=== PATIENT | male | born 1950 | race Caucasian/White ===

== ENCOUNTER 2017-02-04 20:45 | Inpatient (IN) | payer OTHER ==
--- NOTE | ~2017-02-04 | DS ---
Discharge Summary [facility] [address] [place]. [address] NAME: MAY YOU : 49 STATUS : DIS IN PAT#: [id number] AGE: 66 ADM/REG DATE : 02/04/17 MR#: [id number] REPORT SERV DATE: 02/08/17 DICTATED BY: MARTINEZ REYES DATE: 02/08/17 REPORT STATUS : Draft TRANSCRIBED BY: MODL DATE: 02/08/17 ADMISSION DATE: 02/04/2017 DISCHARGE DATE: 02/08/2017 PRIMARY CARE PHYSICIAN: Edgard Christiansen. CONSULTING PHYSICIAN: Dr. Jaeger for GI, Dr. Tate for [place], Cardiology. FINAL DIAGNOSES: 1. Acute hepatitis B. 2. Paroxysmal atrial fibrillation. 3. Hypertension. 4. History of hypertrophic obstructive cardiomyopathy. 5. Chronic kidney disease, III. 6. Obstructive sleep apnea. 7. Parkinson's. 8. Obesity. 9. Right staghorn calculus. DIAGNOSTIC EXAM: Echocardiogram reveals hypertrophic obstructive cardiomyopathy, normal left ventricular size with hyperdynamic systolic function at 65%, moderate asymmetric septal hypertrophy, dynamic LVOT obstruction, peak aortic gradient at 100, mild diastolic dysfunction, mild left atrial enlargement, aortic valve sclerosis without stenosis, possible bicuspid morphology. Chest x-ray showing mild fullness of the pulmonary vasculature with bibasilar atelectasis, stable mild enlargement of the cardiac silhouette. Gallbladder ultrasound showing calcifications are present in the non-dependent location in the gallbladder within the gallbladder wall. There is no ultrasound evidence of cholecystitis. Right staghorn renal calculus with cortical thinning, obscuration of pancreas by gas. CAT scan of the abdomen and pelvis showing no acute abdominal or pelvic pathology, cholelithiasis. No acute cholecystitis pattern. Large nonobstructing staghorn calculus, right kidney, with extensive diffuse renal cortical thinning, right kidney. Nonobstructing 2 mm calculus, lower pole, left renal collecting system. HOSPITAL COURSE: Please refer to the H and P done by Dr. Tate dated on 02/04/2017. Briefly this is a 66-year-old male, who comes in with jaundice. The patient started having icteric sclerae about four days prior to admission, went to his PCP and was found to have elevated bilirubin. He has been getting weaker and weaker, decreased appetite, and was then seen in the emergency room. The patient was admitted. Further workup revealed that he has an acute hepatitis B. He got Dr. Jaeger involved and he has had more of supportive care only. We have seen his liver enzymes trending downward with no nausea and vomiting, and he expressed his wishes to go home. We got clearance from Dr. Jaeger for him to go home today. Discharge Summary [facility] [id number] [place]. [address] NAME: MAY YOU : 49 STATUS : DIS IN PAT#: [id number] AGE: 66 ADM/REG DATE : 02/04/17 MR#: [id number] REPORT SERV DATE: 02/08/17 DICTATED BY: MARTINEZ REYES DATE: 02/08/17 REPORT STATUS : Draft TRANSCRIBED BY: VICTORIA DATE: 02/08/17 Meanwhile, he was having some pain. It was not clear whether it is from the abdomen or chest, so we got a troponin, and it was found to be elevated. Further evaluation revealed that he has been having some chronic elevation of his troponin, and we got Cardiology involved. They did not believe that the patient has any acute coronary syndrome, and they said this is a chronic troponin leak. They did an echocardiogram, which showed the above findings. They increased the metoprolol and wanted to restart the Eliquis that we stopped. We initially stopped the Eliquis because the INR was elevated. The patient refused to take the Eliquis, took the higher dose of metoprolol, and felt worse. Cardiology dropped by. They said it is okay to keep the patient on either dose but needs to follow up with Dr. Way, and they did not think that there is any cardiac process going on right now as they believed that the pain is more of abdominal rather than chest. Meanwhile, the patient was found also to have a dirty urine. It is likely due to his high bilirubin. He got a urinalysis, which shows a gram-negative aftab, but I asked him repeatedly, he denies any urinary symptoms at all. I hesitate to treat this patient with antibiotics, and I would defer that later on if he gets some symptoms. The patient expressed his wishes to go home. The son believed that he is better than when he first came in, so we will be discharging him with the above diagnoses. He will follow up with Dr. Rayo Christiansen, which he said he has an appointment already next week. Follow up with Dr. Jaeger in a month. Follow up with Dr. Way in three to four weeks. He will be on the following medications: Aspirin 81 mg a day, Sinemet 1 tablet 3 times a day, multivitamin once a day, metoprolol 12.5 mg twice a day, Mirapex 0.75 mg three times a day. The patient was counseled that if he has more symptoms, any kind of nausea, vomiting, fever, dysuria, hematuria, not to hesitate to come back to the emergency room. This has been explained to the patient in front of the son. They agreed and understood the plan. TIME SPENT: 35 minutes. GIANNA/VICTORIA Martinez Reyes M.D. / [id number]
--- NOTE | ~2017-02-04 | HP ---
History And Physical [address] [place]. [address] NAME: MAY YOU : 49 STATUS : ADM IN [facility]#: [id number] AGE: 66 ADM/REG DATE : 02/04/17 MR#: [id number] REPORT SERV DATE: 02/05/17 DICTATED BY: EMELIA PAYNE DATE: 02/05/17 REPORT STATUS : Draft TRANSCRIBED BY: MODL DATE: 02/05/17 DATE OF ADMISSION: 02/04/2017 CHIEF COMPLAINT: A 66-year-old male presenting with extreme jaundice, new onset. HISTORY OF PRESENT ILLNESS: The patient's history was obtained through careful interview with the patient and son, coupled with review of [facility] and [facility] medical records. The patient about four days prior to admission began to have yellow in his eyes. His son first noticed this and urged him to finally follow up with his primary care physician. He did see his primary care physician on the day prior to admission, and had blood work that confirmed elevated bilirubin with other liver enzyme abnormalities. He has been feeling "weak" for about seven days at times as if his legs will give out under him. He describes abdominal discomfort mostly in his lower quadrants, but then radiating up into his right upper quadrant to the back, a bloated gassy quality 4/10 severity. He has had myalgias, decreased appetite, but no nausea or vomiting. He has had about a five-pound weight loss in the last two weeks. He has chronic lymphedema that seems unchanged from baseline. He admits that his Parkinson's tremor as worsened by illness and anxiety now. He denies any history of IV drug abuse or blood transfusion. REVIEW OF SYSTEMS: Otherwise, a 14-point review of systems was obtained and was negative. PAST MEDICAL HISTORY: 1. Parkinson disease. 2. Hypertrophic obstructive cardiomyopathy. 3. Atrial fibrillation, followed by Dr. Way. 4. Morbid obesity with body mass index greater than 40. 5. Obstructive sleep apnea, on BiPAP. 6. Elevated cholesterol. 7. Hypertension. 8. Dyslipidemia. 9. Chronic kidney disease, stage III, baseline creatinine of 1.2 to 1.3. 10.Nephrolithiasis. 11.Cholelithiasis. 12.Hypothyroidism. 13.Previous gastrointestinal evaluation by Dr. Jaeger. PAST SURGICAL HISTORY: Denies any. History And Physical [address] [place]. [address] NAME: MAY YOU : [birth year] STATUS : ADM IN [facility]#: [id number] AGE: 66 ADM/REG DATE : 02/04/17 MR#: [id number] REPORT SERV DATE: 02/05/17 DICTATED BY: EMELIA PAYNE DATE: 02/05/17 REPORT STATUS : Draft TRANSCRIBED BY: MODL DATE: 02/05/17 ALLERGIES: NO KNOWN DRUG ALLERGIES. SOCIAL HISTORY: The patient is , lives alone. He has one son. 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 He now lives in [place], [place]. No tobacco abuse. No alcohol use. FAMILY HISTORY: Father at 59 years of age of heart disease. Brother at 60 years of age of heart disease. Mother of cancer. Many family members have had gallbladder disease, but no known liver disease in the family. CURRENT MEDICATIONS: Include Eliquis 5 mg p.o. b.i.d., carbidopa/levodopa p.o. three times a day, metoprolol 12.5 mg p.o. b.i.d., multivitamin, and Mirapex 0.75 mg p.o. t.i.d. PHYSICAL EXAMINATION: VITAL SIGNS: Temperature 98.6, pulse 57, blood pressure 146/89, respiratory rate 18, O2 saturation 97% on room air. GENERAL: Pleasant, cooperative, male, obviously jaundiced. HEENT: Pupils equal, round, and reactive to light. No conjunctival pallor. Nares are patent. Oropharynx is clear of obstruction. Moist mucous membranes. NECK: Trachea midline. No thyromegaly. LYMPH: No cervical lymphadenopathy. No supraclavicular lymphadenopathy. RESPIRATORY: Clear to auscultation at bases. No wheezes, no rales, no rhonchi. Normal respiratory effort. CARDIOVASCULAR: Bradycardic, regular rhythm. The patient does have a 3/6 systolic murmur that radiates upward towards the neck. No jugular venous distention. No significant lower extremity edema other than chronic changes. ABDOMEN: Only minimally tender throughout. No specific right upper quadrant abdominal pain on exam. No rebound. No guarding. Nondistended. No hepatosplenomegaly. DERMATOLOGICAL: Jaundice throughout. Warm and dry extremities. No pallor, no cyanosis. PSYCHIATRIC: Normal affect. Good mood. Alert and oriented x3. LABORATORY DATA: White blood count 7.2, hemoglobin 13, hematocrit 39, platelets 170. Sodium 138, potassium 4.1, chloride 104, bicarb 25, BUN 22, creatinine 1.49, glucose 99. Albumin 2.2. AST 682, ALT 227, alkaline phosphatase 131. Total bilirubin 20.2. STUDIES: CT scan of the abdomen shows cholelithiasis and also shows a staghorn calculus in the kidneys, but without any associated complication. ASSESSMENT AND PLAN: 1. Acute cholestatic liver failure with evidence of cholelithiasis, but no clear obstruction on CT scan. We would like to consult Dr. Jaeger, the patient's claims correspondence clerk, but also consulted to Dr. Maged Hinkle, gun perforator loader. Check an ultrasound of liver and gallbladder for now. 2. Hepatitis B. Apparently labs on the day prior to admission did show a positive hepatitis B surface antigen and a positive hepatitis B core IgM antibody. We will consult Dr. Maged Hinkle, gun perforator loader. No clear risk factors were identified for History And Physical [address] [address] NAME: MAY YOU : [birth year] STATUS : ADM IN [facility]#: [id number] AGE: 66 ADM/REG DATE : 02/04/17 MR#: [id number] REPORT SERV DATE: 02/05/17 DICTATED BY: EMELIA PAYNE DATE: 02/05/17 REPORT STATUS : Draft TRANSCRIBED BY: MODL DATE: 02/05/17 being infected with hepatitis B though. 3. Obstructive sleep apnea, on BiPAP. 4. Chronic kidney disease, stage III. 5. Hypertrophic obstructive cardiomyopathy with murmur. 6. Parkinson disease worsened by illness and stress. 7. Paroxysmal atrial fibrillation, on Eliquis. We will be holding this anticoagulation for procedure possibilities. CHARANL/VICTORIA Emelia Payne M.D. / [id number] CC: Chad Mcgregor Jr, MD Richard Sadowitz, M.D. Edgard Lewis M.D.
--- NOTE | ~2017-02-04 | CN ---
Consultation Report [facility] [address] [place]. [address] NAME: MAY YOU : 49 STATUS : ADM IN PAT#: [id number] AGE: 66 ADM/REG DATE : 02/04/17 MR#: [id number] REPORT SERV DATE: 02/06/17 DICTATED BY: LIZETH NICK DATE: 02/06/17 REPORT STATUS : Draft TRANSCRIBED BY: MODL DATE: 02/06/17 CARDIOLOGY CONSULT DATE OF CONSULTATION: REFERRING REASON: Paroxysmal atrial fibrillation and elevated troponin. HISTORY OF PRESENT ILLNESS: This is a pleasant 66-year-old morbidly obese white gentleman with several medical problems, well known to Dr. Way from [facility] who had recent hospitalization in December at [facility] on hospitalist Service. At that time, he was found to have some atypical chest pain and palpitations. He was found to be in atrial fibrillation, but converted back to normal sinus rhythm per note. He has mild nonobstructive CAD by arteriogram in 2014 likely has some hypertrophic obstructive cardiomyopathy with some mildly increased gradient during the pullback from left ventricle per Dr. Cristobal in 2014. This was not confirmed by the echocardiogram. The EF was 65%. In December, he had mild troponin leak up to 1.12. He denied any chest pain but has intermittent abdominal discomfort recently. He noted jaundice for about one week, general weakness, poor appetite, and some weight loss. He lives independently. Of note, the patient walks without any support but has underlying Parkinson disease followed by Dr. Rocha. When he came to emergency room, there were some episodes of wide-complex tachycardia on monitor, but the patient does not have any recollection about any chest pain at that time. It is unclear without any annotation if the patient was moving or not. He has severe tremor. At around 4 a.m. in the morning, he developed what he clearly described to me left upper quadrant abdominal pain. An electrocardiogram was performed which suggested atrial fibrillation with slow ventricular response at 57 beats per minute, but no acute ST-T changes. His troponin remains at 0.13. He is currently normal sinus rhythm with some multiple movements due to the tremor of his upper extremities. Another electrocardiogram now suggested the possibility of atrial flutter on 12-leads, but on monitor he remains in sinus rhythm. He is hemodynamically stable without any chest pain. He is sitting comfortable on a chair. The patient denied any recent chest pain. The decision was to treat him medically per Dr. Way recently. He has been seen by him also in the office on 01/04/2017 and was treated with Eliquis and metoprolol. He denied any recent bleeding, but in the emergency room, he was found to have a markedly elevated liver enzymes including lipase. INR is 2.2 and direct bilirubin 16.2. His antibodies against hepatitis B suggesting acute hepatitis. He is in the process to be seen by a liver specialist. The rest of the review of systems is negative. PAST MEDICAL HISTORY: 1. Morbid obesity. 2. Paroxysmal atrial fibrillation, currently normal sinus rhythm. 3. Anticoagulation with Eliquis, started on 12/2016. 4. Holter monitor in 12/2016 revealed normal sinus rhythm. No evidence of AFib. Consultation Report [facility] [id number] [facility] [place]. [address] NAME: MAY YOU : 48 STATUS : ADM IN [facility]#: [id number] AGE: 66 ADM/REG DATE : 02/04/17 MR#: [id number] REPORT SERV DATE: 02/06/17 DICTATED BY: LIZETH NICK DATE: 02/06/17 REPORT STATUS : Draft TRANSCRIBED BY: VICTORIA DATE: 02/06/17 5. Hypertension. 6. Hyperlipidemia. 7. Morbid obesity. 8. Obstructive sleep apnea, on nocturnal BiPAP. 9. Parkinson disease with significant upper extremity tremors. 10.Possible hypertrophic obstructive cardiomyopathy per an arteriogram in 2014. 11.Preserved systolic function with EF 65% by echocardiogram in 2014. 12.Mild nonobstructive CAD by arteriogram in 2014. 13.Chronic troponin leak at 0.12. 14.Chronic lower extremity lymphedema. ALLERGIES: NO KNOWN DRUG ALLERGIES. SOCIAL HISTORY: The patient is retired. He is . Lives independently. His son is living close by. He is walking without any support. He denies drinking alcohol or using street drugs or smoking. FAMILY HISTORY: Remarkable for his father having OK at age 59. HOME MEDICATIONS: Eliquis 5 mg twice a day, Sinemet 25/100 mg four times a day, metoprolol tartrate 12.5 mg twice a day, multivitamin, and Mirapex 0.7 mg once a day. PHYSICAL EXAMINATION: GENERAL: In no acute distress. VITAL SIGNS: Blood pressure 126/77, heart rate 60 and regular. LUNGS: Decreased breath sounds bibasilarly, but no crackles. There is obvious jaundice present was yellow discoloration of his entire upper torso and upper extremities including the face and the sclera. ABDOMEN: Morbidly obese, distended, with palpation tenderness in the epigastric and left upper quadrant area. EXTREMITIES: Lower extremity 1+ chronic lymphedema up to half of the shins bilaterally with decreased pedal pulses. DATA: ALP 124, AST 745, direct bilirubin 16.2, lipase 551. Creatinine 1.54 and now 1.31 and BUN 20. Hemoglobin 11.8 and hematocrit 35. Troponin 0.13 and 0.12. Brain natriuretic peptide 249. TSH is 3.5. Electrolytes are otherwise within normal limits. Electrocardiogram as above. ASSESSMENT AND PLAN: 1. Acute hepatitis B. 2. Intermittent abdominal pain, likely related to #1. 3. Paroxysmal atrial fibrillation, currently normal sinus rhythm. 4. Chronic mild troponin elevation. 5. Mild nonobstructive coronary artery disease by arteriogram in 2014. 6. Possible hypertrophic cardiomyopathy. Consultation Report [address] [address] NAME: MAY YOU : 48 STATUS : ADM IN [facility]#: [id number] AGE: 66 ADM/REG DATE : 02/04/17 MR#: [id number] REPORT SERV DATE: 02/06/17 DICTATED BY: LIZETH NICK DATE: 02/06/17 REPORT STATUS : Draft TRANSCRIBED BY: VICTORIA DATE: 02/06/17 7. The patient will be seen by liver specialist. 8. Anticoagulation in on hold per Primary Service due to his liver dysfunction. At the present time, there is no clear evidence of atrial fibrillation. Follow monitor here, remains normal sinus rhythm. He also denied any palpitations. We will increase dose of metoprolol, and supplement p.r.n. IV metoprolol if needed. We will start him on aspirin 81 mg once a day. Anticoagulation should be reconsidered when safe from the liver standpoint, and we will do echocardiogram to exclude regional wall motion abnormalities and LVOT gradient. At the present time, there is nothing suggesting acute coronary syndrome. I will hold off arteriogram until other pressing indications. I will try to avoid antiarrhythmics at the present time. His rhythm will need to be follow very closely, but it may be challenging interpretation due to his significant tremor. OJL/MODL Lizeth Nick M.D. / [id number] CC: Odalis Malagon M.D.
[2017-02-04 10:17] LABS: HEPATITIS C ANTIBODY NON-REACTIVE (NON-REACT)
[2017-02-04 10:19] LABS: HEP A ANTIBODY IGM NON-REACTIVE (NON-REACT)
[2017-02-04 10:33] LABS: HEPATITIS B SURFACE ANTIGEN REACTIVE (NON-REACT)
[2017-02-04 11:45] LABS: HEPATITIS B CORE AB IGM REACTIVE (NON-REAC)
[2017-02-04 15:10] LABS: CALCIUM, SERUM 7.9 MG/DL (8.5-10.4); CHLORIDE, SERUM 107 MMOL/L (96-112); GLUCOSE, SERUM 91 MG/DL (60-99); SODIUM, SERUM 138 MMOL/L (135-148)
[2017-02-04 15:51] LABS: A/G RATIO 0.5 (0.7-1.9); ALBUMIN 2.4 G/DL (3.5-5.0); ALKALINE PHOSPHATASE 124 U/L (45-117); BUN (BLOOD UREA NITROGEN) 21 MG/DL (6-23); CO2 (CARBON DIOXIDE) 18 MMOL/L (24-34); CREATININE 1.39 MG/DL (0.70-1.30); GFR AFRICAN AMERICAN 60 ML/MIN (>=60); GFR NON AFRICAN AMERICAN 52 ML/MIN (>=60); GLOBULIN 4.7 G/DL (2.5-4.1); POTASSIUM, SERUM 4.1 MMOL/L (3.5-5.3); SGOT(AST) 745 U/L (5-40); SGPT(ALT) 282 U/L (5-65); TOTAL BILIRUBIN 20.9 MG/DL (0-1.2); TOTAL PROTEIN 7.1 G/DL (6.0-8.5)
[~2017-02-04 20:45] MED LIST: ASAB PO; AZILECT PO; AZILECT1 MG PO; COQ10100 MG PO; ELIQUIS 5 MG TAB5 MG PO; FOLIC ACID800 MCG PO; KRILLOIL; KRILLOIL PO; LOP25 PO; MAGNESIUM OTC PO; MAGONATE PO; MIRAPEX0.75 MG PO; MIRAPEX250 PO; PARCOPA PO; RED YEAS1 PO; SIN25 PO; SIN25-250 PO; THERGRANM PO; VITAMIN D1000 UNI1 PO; VITAMIN D31000 UNIT PO; VITE PO; ZOCOR5 MG PO; [UNRECOGNIZED DRUG - OTHER] PO
[2017-02-04 21:03] LABS: BASOPHILS 0.6 %; BASOPHILS ABSOLUTE 0.04 10/3/uL (0.0-0.16); EOSINOPHILS 0.8 %; EOSINOPHILS ABSOLUTE 0.06 10/3/uL (0.0-0.53); ER CBC TAT 0 Hrs 11 Mins; HEMATOCRIT 39.7 % (40.0-51.0); HEMOGLOBIN 13.5 g/dL (13.6-17.8); IMMATURE GRANULOCYTES 4.3 %; IMMATURE GRANULOCYTES ABSOLUTE 0.31 10/3/uL (0.0-0.11); LYMPHOCYTES 23.5 %; MANUAL DIFF NO %; MEAN CORPUSCULAR HEMOGLOB 32.8 pg (26.0-34.0); MEAN CORPUSCULAR VOLUME 96.6 fL (80-100); MEAN PLATELET VOLUME 11.2 fL (9.2-13.0); MONOCYTES 13.2 %; MONOCYTES ABSOLUTE 0.95 10/3/uL (0.21-1.20); NEUTROPHILS 57.6 %; NEUTROPHILS ABSOLUTE 4.16 10/3/uL (2.02-8.40); PLATELET COUNT 170 10/3/uL (150-400); RBC DISTRIBUTION WIDTH 19.2 % (12.0-16.0); RED CELL COUNT 4.11 10/6/uL (4.7-6.1); WHITE BLOOD CELLS 7.2 10/3/uL (4.5-10.5)
[2017-02-04 21:28] LABS: ALBUMIN 2.2 G/DL (3.5-5.0); ALKALINE PHOSPHATASE 131 U/L (45-117); BUN (BLOOD UREA NITROGEN) 22 MG/DL (6-23); CALCIUM, SERUM 7.9 MG/DL (8.5-10.4); CHLORIDE, SERUM 104 MMOL/L (96-112); GLUCOSE, SERUM 99 MG/DL (60-99); POTASSIUM, SERUM 4.1 MMOL/L (3.5-5.3); SGOT(AST) 682 U/L (5-40); SGPT(ALT) 227 U/L (5-65); SODIUM, SERUM 138 MMOL/L (135-148)
[2017-02-04 21:31] LABS: CO2 (CARBON DIOXIDE) 25 MMOL/L (24-34)
[2017-02-04 21:32] LABS: A/G RATIO 0.4 (0.7-1.9); CREATININE 1.49 MG/DL (0.70-1.30); GFR AFRICAN AMERICAN 55 ML/MIN (>=60); GFR NON AFRICAN AMERICAN 48 ML/MIN (>=60); GLOBULIN 5.4 G/DL (2.5-4.1); TOTAL BILIRUBIN 20.5 MG/DL (0-1.2); TOTAL PROTEIN 7.6 G/DL (6.0-8.5)
[2017-02-04 22:03] LABS: DIRECT BILIRUBIN 16.2 MG/DL (0.0-0.4); INDIRECT BILIRUBIN(NOT ORDER) 4.3 MG/DL (0.1-0.9)
[2017-02-04 22:04] LABS: TOTAL BILIRUBIN 20.5 MG/DL (0-1.2)
[2017-02-05 04:39] LABS: BASOPHILS 0.4 %; BASOPHILS ABSOLUTE 0.03 10/3/uL (0.0-0.16); EOSINOPHILS 0.8 %; EOSINOPHILS ABSOLUTE 0.06 10/3/uL (0.0-0.53); HEMATOCRIT 39.3 % (40.0-51.0); HEMOGLOBIN 13.7 g/dL (13.6-17.8); IMMATURE GRANULOCYTES 2.4 %; IMMATURE GRANULOCYTES ABSOLUTE 0.18 10/3/uL (0.0-0.11); LYMPHOCYTES 27.2 %; MEAN CORPUS HGB CONC 34.9 g/dL (32.0-36.0); MEAN CORPUSCULAR HEMOGLOB 33.3 pg (26.0-34.0); MEAN CORPUSCULAR VOLUME 95.6 fL (80-100); MONOCYTES 12.4 %; MONOCYTES ABSOLUTE 0.91 10/3/uL (0.21-1.20); NEUTROPHILS 56.8 %; NEUTROPHILS ABSOLUTE 4.18 10/3/uL (2.02-8.40); PLATELET COUNT 192 10/3/uL (150-400); RED CELL COUNT 4.11 10/6/uL (4.7-6.1); WHITE BLOOD CELLS 7.4 10/3/uL (4.5-10.5)
[2017-02-05 04:40] LABS: MANUAL DIFF NO %
[2017-02-05 04:47] LABS: INTERNATIONAL NORMAL RATI 2.2 UNITS (-); PARTIAL THROMBO TIME 39.9 SEC (22.5-37.2)
[2017-02-05 04:48] LABS: PROTIME (NOT ORD) 24.4 SEC (12.0-14.5)
[2017-02-05 05:05] LABS: ALKALINE PHOSPHATASE 121 U/L (45-117); BUN (BLOOD UREA NITROGEN) 23 MG/DL (6-23); CALCIUM, SERUM 7.8 MG/DL (8.5-10.4); CHLORIDE, SERUM 108 MMOL/L (96-112); GLUCOSE, SERUM 99 MG/DL (60-99); SGPT(ALT) 473 U/L (5-65)
[2017-02-05 05:19] LABS: A/G RATIO 0.4 (0.7-1.9); CO2 (CARBON DIOXIDE) 18 MMOL/L (24-34); CREATININE 1.54 MG/DL (0.70-1.30); GFR AFRICAN AMERICAN 53 ML/MIN (>=60); GFR NON AFRICAN AMERICAN 46 ML/MIN (>=60); GLOBULIN 5.2 G/DL (2.5-4.1); TOTAL BILIRUBIN 20.3 MG/DL (0-1.2); TOTAL PROTEIN 7.2 G/DL (6.0-8.5)
[2017-02-05 05:20] LABS: SGOT(AST) 671 U/L (5-40); SODIUM, SERUM 138 MMOL/L (135-148); TROPONIN I 0.13 NG/ML (<0.05)
[2017-02-05 06:23] LABS: B NATRIURETIC PEPTIDE (BNP) 197.4 PG/ML (< 100.0)
[2017-02-05 09:01] LABS: ASCORBIC ACID (UR NOT ORDER) NEG (NEG); BILIRUBIN, URINE SMALL (NEG); ER URINALYSIS TAT 2 Hrs 13 Mins; KETONE, URINE NEGATIVE (NEG); LEUKOCYTE ESTERASE(NOT OR SMALL (NEG); NITRITE (URINE) NEG (NEG); WBC (NOT ORDERED) (RFLEX) > 182 (0-5)
[2017-02-05 15:08] LABS: ACETAMINOPHEN LEVEL (TYLENOL) < 2.0 MCG/ML (10.0-20.0)
[2017-02-06 05:16] LABS: BASOPHILS 0.4 %; BASOPHILS ABSOLUTE 0.02 10/3/uL (0.0-0.16); EOSINOPHILS 1.5 %; EOSINOPHILS ABSOLUTE 0.08 10/3/uL (0.0-0.53); HEMOGLOBIN 11.8 g/dL (13.6-17.8); IMMATURE GRANULOCYTES 2.4 %; IMMATURE GRANULOCYTES ABSOLUTE 0.13 10/3/uL (0.0-0.11); LYMPHOCYTES 18.1 %; LYMPHOCYTES ABSOLUTE 0.98 10/3/uL (0.67-4.30); MEAN CORPUS HGB CONC 33.5 g/dL (32.0-36.0); MEAN CORPUSCULAR HEMOGLOB 32.3 pg (26.0-34.0); MEAN CORPUSCULAR VOLUME 96.4 fL (80-100); MEAN PLATELET VOLUME 11.5 fL (9.2-13.0); MONOCYTES 15.3 %; MONOCYTES ABSOLUTE 0.83 10/3/uL (0.21-1.20); NEUTROPHILS 62.3 %; NEUTROPHILS ABSOLUTE 3.37 10/3/uL (2.02-8.40); PLATELET COUNT 167 10/3/uL (150-400); RBC DISTRIBUTION WIDTH 19.1 % (12.0-16.0); RED CELL COUNT 3.65 10/6/uL (4.7-6.1); WHITE BLOOD CELLS 5.4 10/3/uL (4.5-10.5)
[2017-02-06 05:20] LABS: HEMATOCRIT 35.2 % (40.0-51.0)
[2017-02-06 05:21] LABS: MANUAL DIFF NO %
[2017-02-06 05:23] LABS: INTERNATIONAL NORMAL RATI 2.2 UNITS (-); PROTIME (NOT ORD) 24.2 SEC (12.0-14.5)
[2017-02-06 05:24] LABS: PARTIAL THROMBO TIME 40.8 SEC (22.5-37.2)
[2017-02-06 05:32] LABS: A/G RATIO 0.4 (0.7-1.9); ALBUMIN 1.7 G/DL (3.5-5.0); BUN (BLOOD UREA NITROGEN) 20 MG/DL (6-23); CALCIUM, SERUM 7.4 MG/DL (8.5-10.4); CHLORIDE, SERUM 108 MMOL/L (96-112); CO2 (CARBON DIOXIDE) 21 MMOL/L (24-34); CREATININE 1.31 MG/DL (0.70-1.30); GFR AFRICAN AMERICAN 65 ML/MIN (>=60); GFR NON AFRICAN AMERICAN 56 ML/MIN (>=60); GLOBULIN 4.5 G/DL (2.5-4.1); GLUCOSE, SERUM 96 MG/DL (60-99); POTASSIUM, SERUM 3.7 MMOL/L (3.5-5.3); SGOT(AST) 485 U/L (5-40); SGPT(ALT) 110 U/L (5-65); SODIUM, SERUM 139 MMOL/L (135-148); TOTAL PROTEIN 6.2 G/DL (6.0-8.5)
[2017-02-06 05:33] LABS: ALKALINE PHOSPHATASE 104 U/L (45-117); DIRECT BILIRUBIN 12.6 MG/DL (0.0-0.4); INDIRECT BILIRUBIN(NOT ORDER) 3.2 MG/DL (0.1-0.9); TOTAL BILIRUBIN 15.8 MG/DL (0-1.2); TROPONIN I 0.12 NG/ML (<0.05)
[2017-02-06 05:38] LABS: B NATRIURETIC PEPTIDE (BNP) 249.8 PG/ML (< 100.0)
[2017-02-07 06:55] LABS: BASOPHILS 0.3 %; BASOPHILS ABSOLUTE 0.02 10/3/uL (0.0-0.16); EOSINOPHILS 1.4 %; EOSINOPHILS ABSOLUTE 0.08 10/3/uL (0.0-0.53); HEMATOCRIT 37.6 % (40.0-51.0); HEMOGLOBIN 13.1 g/dL (13.6-17.8); IMMATURE GRANULOCYTES 1.6 %; IMMATURE GRANULOCYTES ABSOLUTE 0.09 10/3/uL (0.0-0.11); LYMPHOCYTES 21.4 %; LYMPHOCYTES ABSOLUTE 1.24 10/3/uL (0.67-4.30); MEAN CORPUS HGB CONC 34.8 g/dL (32.0-36.0); MEAN CORPUSCULAR HEMOGLOB 33.9 pg (26.0-34.0); MEAN CORPUSCULAR VOLUME 97.4 fL (80-100); MEAN PLATELET VOLUME 11.7 fL (9.2-13.0); MONOCYTES 10.7 %; MONOCYTES ABSOLUTE 0.62 10/3/uL (0.21-1.20); NEUTROPHILS 64.6 %; NEUTROPHILS ABSOLUTE 3.75 10/3/uL (2.02-8.40); PLATELET COUNT 184 10/3/uL (150-400); RBC DISTRIBUTION WIDTH 19.2 % (12.0-16.0); RED CELL COUNT 3.86 10/6/uL (4.7-6.1); WHITE BLOOD CELLS 5.8 10/3/uL (4.5-10.5)
[2017-02-07 07:00] LABS: MANUAL DIFF NO %
[2017-02-07 07:08] LABS: INTERNATIONAL NORMAL RATI 1.9 UNITS (-)
[2017-02-07 07:13] LABS: ALBUMIN 1.9 G/DL (3.5-5.0); ALKALINE PHOSPHATASE 112 U/L (45-117); BUN (BLOOD UREA NITROGEN) 21 MG/DL (6-23); CALCIUM, SERUM 7.7 MG/DL (8.5-10.4); CHLORIDE, SERUM 108 MMOL/L (96-112); CO2 (CARBON DIOXIDE) 21 MMOL/L (24-34); CREATININE 1.47 MG/DL (0.70-1.30); DIRECT BILIRUBIN 12.8 MG/DL (0.0-0.4); GAMMA GT 205 U/L (5-85); GFR AFRICAN AMERICAN 56 ML/MIN (>=60); GFR NON AFRICAN AMERICAN 49 ML/MIN (>=60); GLUCOSE, SERUM 103 MG/DL (60-99); INDIRECT BILIRUBIN(NOT ORDER) 3.7 MG/DL (0.1-0.9); POTASSIUM, SERUM 4.3 MMOL/L (3.5-5.3); SGPT(ALT) 83 U/L (5-65); SODIUM, SERUM 139 MMOL/L (135-148); TOTAL BILIRUBIN 16.5 MG/DL (0-1.2)
[2017-02-07 07:14] LABS: SGOT(AST) 510 U/L (5-40)
[2017-02-07 21:49] LABS: ASCORBIC ACID (UR NOT ORDER) NEG (NEG); BILIRUBIN, URINE SMALL (NEG); KETONE, URINE NEGATIVE (NEG); LEUKOCYTE ESTERASE(NOT OR MOD (NEG); WBC (NOT ORDERED) (RFLEX) > 182 (0-5)
[2017-02-07 22:47] LABS: HBE AB Non Reactive (NR)
[2017-02-08 07:51] LABS: A/G RATIO 0.4 (0.7-1.9); ALBUMIN 1.9 G/DL (3.5-5.0); ALKALINE PHOSPHATASE 112 U/L (45-117); BUN (BLOOD UREA NITROGEN) 22 MG/DL (6-23); CALCIUM, SERUM 8.1 MG/DL (8.5-10.4); CHLORIDE, SERUM 109 MMOL/L (96-112); CO2 (CARBON DIOXIDE) 19 MMOL/L (24-34); CREATININE 1.36 MG/DL (0.70-1.30); GFR AFRICAN AMERICAN 62 ML/MIN (>=60); GFR NON AFRICAN AMERICAN 53 ML/MIN (>=60); GLOBULIN 5.2 G/DL (2.5-4.1); GLUCOSE, SERUM 90 MG/DL (60-99); POTASSIUM, SERUM 3.9 MMOL/L (3.5-5.3); SGPT(ALT) 79 U/L (5-65); SODIUM, SERUM 139 MMOL/L (135-148); TOTAL PROTEIN 7.1 G/DL (6.0-8.5)
[2017-02-08 07:53] LABS: SGOT(AST) 517 U/L (5-40); TOTAL BILIRUBIN 15.6 MG/DL (0-1.2)
[2017-02-08 09:27] LABS: INTERNATIONAL NORMAL RATI 2.1 UNITS (-); PROTIME (NOT ORD) 23.1 SEC (12.0-14.5)
[2017-02-08] MEDS ORDERED: ASAB PO (11:27)
[2017-02-09 15:52] LABS: HBV DNA QUANT LOG10 VALUE 5.4 (NOTDET); HBV DNA QUANT RESULT 232635 IU/mL (NOTDET)
[2017-02-11 23:09] LABS: HBE AG Reactive (NR)
[2017-07-16] MEDS ORDERED: ELIQUIS 2.5 MG2.5 MG PO (09:05)
[2017-07-16] MEDS ORDERED: MIRAPEX5 PO (09:06)
[2017-07-16] MEDS ORDERED: SIN25-250 PO (09:07)
[2017-07-16] MEDS ORDERED: SEVERAL VITS PO (09:08)
== END 2017-02-08 12:56 | disposition home or self-care (01) | DRG 441 ==
LOC: ER 20:45 → CDU1 22:05 → 5SO 02-05 16:30
PROVIDERS: Emergency Medicine; Family Medicine; Internal Medicine; Internal Medicine Gastroenterology
DX: B16.9 Acute hepatitis B without delta-agent and without hepatic coma (principal); K72.00 Acute and subacute hepatic failure without coma; Z68.42 Body mass index [BMI] 45.0-49.9, adult; G20 Parkinson's disease; I42.2 Other hypertrophic cardiomyopathy; E66.01 Morbid (severe) obesity due to excess calories; I48.0 Paroxysmal atrial fibrillation; G47.33 Obstructive sleep apnea (adult) (pediatric); N18.3 Chronic kidney disease, stage 3 (moderate); Z82.49 Family history of ischemic heart disease and other diseases of the circulatory system; Z80.8 Family history of malignant neoplasm of other organs or systems; Z79.899 Other long term (current) drug therapy; I89.0 Lymphedema, not elsewhere classified; F41.9 Anxiety disorder, unspecified
CPT/HCPCS: 36415; 71010; 74176; 76705; 80048; 80053; 80074; 80076; 81001; 82140; 82150; 82247; 82248; 82977; 83690; 83735; 83880; 84443; 84484; 85025; 85610; 85730; 86692; 86707; 87086; 87186; 87350; 87517; 93005; 94660; 99285; A9270-GY; C8929; G0463; G0480; Q9957